=== PATIENT | female | born 1945 | race Caucasian/White ===

== ENCOUNTER 2017-06-23 07:00 | Day surgery (SDC) | payer OTHER ==
[~2017-06-23] VITALS: Ht 147.3 cm; Wt 52.2 kg
[~2017-06-23 07:00] MED LIST: ASPIRIN EC81 MG PO; CALTRATE 600 +1 EACH PO; COZAAR50 MG PO; ESSENTIAL DAIL1 EACH PO; GLUCOTROL10 MG PO; NORVASC5 MG PO; VIT D; [UNRECOGNIZED DRUG - OTHER] PO
[2017-06-24] MEDS ORDERED: SURFAK240 M1 PO (13:56)
[2017-06-24] MEDS ORDERED: CARAFATE1 GM/10 ML PO (13:56)
[2017-06-24] MEDS ORDERED: POLY119PG PO (13:56)
[2017-06-24] MEDS ORDERED: PERCOCET 5-3251 EACH PO (13:56)
== END 2017-06-24 08:00 | disposition home or self-care (01) ==
LOC: CIR.AMB 07:00 → EDSTATUS 07:30 → SURH 07:30 → O/R 19:27 → SURH 19:27 → CIR.AMB 06-24 08:00 → O/R 06-24 17:33 → SURH 06-24 17:33
DX: K44.9 Diaphragmatic hernia without obstruction or gangrene (principal); J98.11 Atelectasis; K31.89 Other diseases of stomach and duodenum; K42.9 Umbilical hernia without obstruction or gangrene; K43.2 Incisional hernia without obstruction or gangrene; E11.9 Type 2 diabetes mellitus without complications; I10 Essential (primary) hypertension; J45.909 Unspecified asthma, uncomplicated

== ENCOUNTER → 2017-09-16 | Outpatient (CLI) | payer OTHER ==
[~2017-09-16] MED LIST changes: +CARAFATE1 GM/10 ML PO; +PERCOCET 5-3251 EACH PO; +POLY119PG PO; +SURFAK240 M1 PO
== END | disposition home or self-care (01) ==
LOC: LAB 11:24
DX: B35.1 Tinea unguium (principal)

== ENCOUNTER 2021-04-21 08:30 | Emergency (ER) | payer OTHER ==
[~2021-04-21] VITALS: Ht 127 cm; Wt 52.6 kg
== END 2021-04-21 10:52 | disposition home or self-care (01) ==
LOC: ER 08:30
DX: R42 Dizziness and giddiness (principal)